=== PATIENT | female | born 2000 | race Two or more races ===

== ENCOUNTER 2020-11-23 22:02 | Emergency (ER) | payer OTHER ==
[~2020-11-23] VITALS: Ht 154.9 cm; Wt 55.0 kg
[2020-11-23] MEDS ORDERED: VISCOUS LIDOCAINE 2% 15 ML UDC PO STA (23:42)
[2020-11-23] MEDS ORDERED: MAGNESIUM/ALUMINUM HYDROXIDE/SIMETHICONE 30ML UDC PO STA (23:42)
[2020-11-23] MEDS ORDERED: FAMOTIDINE 20MG TABLET PO ONE (23:45)
[2020-11-24 00:05] LABS: BASOPHILS % 0.3 % (0.0-2.0); EOSINOPHILS % 0.8 % (0.0-5.0); HEMATOCRIT. 34.4 % (36.0-48.0); LYMPHOCYTES % 9.6 % (20.0-50.0); MEAN CORPUSCULAR HEMOGLOBIN 32.8 pg (28.0-32.0); MEAN CORPUSCULAR VOLUME 94.5 fL (81.0-99.0); MEAN PLATELET VOLUME 8.6 fl (7.4-10.4); MONOCYTES % 5.5 % (2.0-8.0); NEUTROPHILS % 83.8 % (40.0-76.0); PLATELET 335 x1000/uL (130-400); RED BLOOD CELL COUNT 3.64 mill/uL (4.2-5.4); RED CELL DISTRIBUTION WIDTH 12.8 % (11.6-14.6)
[2020-11-24 00:09] LABS: CHLORIDE 109 mEq/L (98-107)
[2020-11-24 00:33] LABS: HCG SCREEN NEGATIVE
[2020-11-24] MEDS ORDERED: KETOROLAC 30MG/ML VIAL IV ONE (01:00)
[2020-11-24 02:08] LABS: CLARITY URINE CLEAR (CLEAR); COLOR URINE YELLOW (YELLOW); KETONES URINE 1+ (NEGATIVE); LEUKOCYTE ESTERASE URINE NEGATIVE (NEGATIVE); NITRITE URINE NEGATIVE (NEGATIVE); OCCULT BLOOD URINE NEGATIVE (NEGATIVE); PROTEIN URINE 1+ (NEGATIVE)
[2020-11-24] MEDS ORDERED: IBUP-2028 MT (05:09)
[2020-11-24 05:16] VITALS: BP 125/75
[2020-11-24] MEDS ORDERED: IOHEXOL-300 100 ML BOTTLE ONE (05:32)
== END 2020-11-24 05:17 | disposition home or self-care (01) ==
LOC: ER 22:02
DX: N83.291 Other ovarian cyst, right side (principal); F12.90 Cannabis use, unspecified, uncomplicated
CPT/HCPCS: 36415; 74177; 76830; 76856; 80053; 81003; 83690; 84703; 85025; 96374; 99285; J1885; Q9967